=== PATIENT | female | born 2000 | race African-American/Black ===

== ENCOUNTER 2022-03-22 12:14 | Emergency (ER) | payer MEDICAID ==
[~2022-03-22] VITALS: Ht 162.6 cm; Wt 80.0 kg
[2022-03-22 14:06] VITALS: BP 116/49
[2022-03-22] MEDS ORDERED: KETOROLAC TROMETH 60MG/2ML VIAL IM ONE (14:45)
[2022-03-22] MEDS ORDERED: IBUP600T27 PO (15:35)
== END 2022-03-22 15:45 | disposition home or self-care (01) ==
LOC: ER 12:14
DX: M23.91 Unspecified internal derangement of right knee (principal)
CPT/HCPCS: 73560; 96372; 99283; J1885

== ENCOUNTER 2022-10-02 16:38 | Emergency (ER) | payer MEDICAID ==
[~2022-10-02] VITALS: Ht 162.6 cm; Wt 77.8 kg
[~2022-10-02 16:38] MED LIST: IBUP600T27 PO
[2022-10-02 17:00] VITALS: BP 145/82
== END 2022-10-03 01:09 | disposition home or self-care (01) ==
LOC: ER 16:38
DX: O26.892 Other specified pregnancy related conditions, second trimester (principal); M54.50 Low back pain, unspecified; R10.2 Pelvic and perineal pain; Z3A.17 17 weeks gestation of pregnancy; W10.8XXA Fall (on) (from) other stairs and steps, initial encounter; Y93.89 Activity, other specified; Y92.89 Other specified places as the place of occurrence of the external cause; Y99.8 Other external cause status
CPT/HCPCS: 36415; 76805; 84702